=== PATIENT | male | born 1970 | race Caucasian/White ===

== ENCOUNTER 2023-12-18 16:26 | Emergency (ER) | payer OTHER ==
[~2023-12-18] VITALS: Ht 177.8 cm; Wt 81.6 kg
[2023-12-18] MEDS ORDERED: CEFTRIAXONE SODIUM 1,000 MG VIAL IM STA (18:03)
[2023-12-18] MEDS ORDERED: KETOROLAC TROMETHAMINE 30 MG VIAL IM STA (18:03)
== END 2023-12-18 18:19 | disposition home or self-care (01) ==
LOC: ER 16:26
DX: K05.10 Chronic gingivitis, plaque induced (principal)
CPT/HCPCS: 96372; 99282; J0696; J1885